=== PATIENT | female | born 1990 | race Caucasian/White ===

== ENCOUNTER 2017-01-13 01:20 | Emergency (ER) | payer OTHER ==
[2017-01-13 01:43] VITALS: BP 143/68; PULSE 122; TEMP 99.1; BMI 27.1
--- NOTE | 2017-01-13 02:25 | PDOC ---
History of Present Illness - General Chief Complaint: Respiratory Stated Complaint: DIFFICULTY BREATHING Time Seen by Provider: 01/13/17 02:05 History Source: Patient Past History - Past History Allergies/Adverse Reactions: Allergies No Known Allergies Allergy (Verified 01/13/17 01:23) Home Medications: Ambulatory Orders No Home Medications 0 dose .ROUTE UTDICT 01/13/13 Ondansetron [Zofran Odt -] 4 mg SL TID #21 od.tablet 10/31/15 Immunization Status Up to Date: Yes Tetanus Status: Unknown - Social History Smoking Status: Never smoked Number of Cigarettes Smoked Per Day: 0 Number of Cigars Per Day: 0 *Physical Exam - Vital Signs Last Vital Signs Temp Pulse Resp BP Pulse Ox 99.1 F 122 H 16 143/68 100 01/13/17 01:23 01/13/17 01:23 01/13/17 01:23 01/13/17 01:23 01/13/17 01:23
[2017-01-13] MEDS ORDERED: IBUPROFEN 600 MG TABLET (FP) PO ONE ×2 (02:34→03:01)
[2017-01-13] MEDS ORDERED: AMOX TR/POT CLAV 500MG/125MG TABLETS (FP) PO ONE (02:34)
[2017-01-13] MEDS ORDERED: PSEUDOEPHEDRINE HCL 30 MG TABLET PO SCH (02:45)
--- NOTE | 2017-01-13 03:00 | PDOC ---
History of Present Illness - General History Source: Patient Exam Limitations: No Limitations - History of Present Illness Initial Comments: 01/13/17 03:02 The patient is a 26 year old female with no significant PMH who presents to the emergency department with cough and sore throat beginning approximately two weeks ago. The patient states her cough and sore throat worsened three days ago prompting her visit to the ER. The patient complains of associated nasal congestion and green phlegm. The patient states she did have a fever but cannot recall the number at this time. The patient reports she tried vinegar gargles with no relief of symptoms. The patient denies chest pain, shortness of breath, headache and dizziness. Denies chills, nausea, vomit, diarrhea and constipation. Allergies: NKA Past surgical history: None reported Social history: No reported cigarette, drug, or alcohol use. <Vesna Liriano - Last Filed: 01/13/17 03:00> - General History Source: Patient <Noe De La Torre - Last Filed: 01/13/17 03:33> - General Chief Complaint: Respiratory Stated Complaint: DIFFICULTY BREATHING Time Seen by Provider: 01/13/17 02:05 Past History <Vesna Liriano - Last Filed: 01/13/17 03:00> - Immunization History Immunization Up to Date: Yes - Suicide/Smoking/Psychosocial Hx Smoking History: Never smoked Have you smoked in the past 12 months: No Number of Cigarettes Smoked Daily: 0 Cigars Per Day: 0 Information on smoking cessation initiated: No Hx Alcohol Use: No Drug/Substance Use Hx: No Substance Use Type: None <Noe De La Torre - Last Filed: 01/13/17 03:33> - Past Medical History Allergies/Adverse Reactions: Allergies Allergy/AdvReac Type Severity Reaction Status Date / Time No Known Allergies Allergy Verified 01/13/17 01:23 Home Medications: Ambulatory Orders No Home Medications 0 dose .ROUTE UTDICT 01/13/13 Ondansetron [Zofran Odt -] 4 mg SL TID #21 od.tablet 10/31/15 Amox-Tr/K Cl [Augmentin 500Mg Tablet] 1 tab PO BID #14 tablet 01/13/17 Diphenhydramine HCl [Benadryl Capsules -] 25 mg PO TID #30 capsule 01/13/17 Ibuprofen [Motrin] 600 mg PO TID #30 tablet 01/13/17 Loratadine [Claritin] 10 mg PO DAILY #30 tablet 01/13/17 Pseudoephedrine HCl [Sudafed] 30 mg PO Q6H #20 tablet 01/13/17 Review of Systems - Review of Systems Able to Perform ROS?: Yes Comments:: 01/13/17 03:03 CONSTITUTIONAL: Absent: no chills, no fatigue Present: fever EYES: Absent: visual changes ENT: Absent: ear pain Present: sore throat, phlegm CARDIOVASCULAR: Absent: chest pain, no palpitations RESPIRATORY: Absent: no SOB Present: cough GI: Absent: abdominal pain, no nausea, no vomiting, no constipation, no diarrhea GENITOURINARY: Absent: dysuria, no frequency, no hematuria MUSCULOSKELETAL: Absent: back pain, no arthralgia, no myalgia SKIN: Absent: rash NEURO: Absent: headache <DeandraVesna - Last Filed: 01/13/17 03:00> *Physical Exam - Vital Signs Last Vital Signs Temp Pulse Resp BP Pulse Ox 99.1 F 122 H 16 143/68 100 01/13/17 01:23 01/13/17 01:23 01/13/17 01:23 01/13/17 01:23 01/13/17 01:23 - Physical Exam Comments: 01/13/17 03:03 GENERAL: Well developed, well nourished. Awake and alert. No acute distress. HEENT: (+) Erythematous throat. (+) Sinus discomfort. (+) Moderate nasal congestion. Normocephalic, atraumatic. PERRLA, EOMI. No conjunctival pallor. Sclera are non- icteric. Moist mucous membranes. Oropharynx is clear. No exudates. NECK: Supple. Full ROM. No JVD. Carotid pulses 2+ and symmetric, without bruits. No thyromegaly. No lymphadenopathy. CARDIOVASCULAR: (+) Tachycardia. Regular rhythm. No murmurs, rubs, or gallops. Distal pulses are 2+ and symmetric. PULMONARY: No evidence of respiratory distress. Lungs clear to auscultation bilaterally. No wheezing, rales or rhonchi. ABDOMINAL: Soft. Non-tender. Non-distended. No rebound or guarding. No organomegaly. Normoactive bowel sounds. MUSCULOSKELETAL Normal range of motion at all joints. No bony deformities or tenderness. No CVA tenderness. EXTREMITIES: No cyanosis. No clubbing. No edema. No calf tenderness. SKIN: Warm and dry. Normal capillary refill. No rashes. No jaundice. NEUROLOGICAL: Alert, awake, appropriate. Cranial nerves 2-12 intact. No deficits to light touch and temperature in face, upper extremities and lower extremities. No motor deficits in the in face, upper extremities and lower extremities. Normoreflexic in the upper and lower extremities. Normal speech. Gait is normal without ataxia. PSYCHIATRIC: Cooperative. Good eye contact. Appropriate mood and affect. <Vesna Liriano - Last Filed: 01/13/17 03:00> - Vital Signs Last Vital Signs Temp Pulse Resp BP Pulse Ox 99.1 F 122 H 16 143/68 100 01/13/17 01:23 01/13/17 01:23 01/13/17 01:23 01/13/17 01:23 01/13/17 01:23 <Noe De La Torre - Last Filed: 01/13/17 03:33> Medical Decision Making - Medical Decision Making 01/13/17 03:32 Dr. De La Torre: The scribe's documentation has been prepared under my direction and personally reviewed by me in its entirery. I confirm that the note above accurately reflects all work, treatment, procedures, and medical decision making performed by me. cough has improved with treatment in the ED. Pt wo be discharged and follow up with her doctor as needed <Noe De La Torre - Last Filed: 01/13/17 03:33> *DC/Admit/Observation/Transfer - Attestations Scribe Attestion: 01/13/17 03:03 Documentation prepared by Vesna Liriano, acting as medical claims assistant for Noe De La Torre DO. <Vesna Liriano - Last Filed: 01/13/17 03:00> - Discharge Dispostion Admit: No <Noe De La Torre - Last Filed: 01/13/17 03:33> Diagnosis at time of Disposition: Cough, Post-nasal drip - Discharge Dispostion Disposition: HOME Condition at time of disposition: - Prescriptions Prescriptions: Amox-Tr/K Cl [Augmentin 500Mg Tablet] 1 tab PO BID #14 tablet Diphenhydramine HCl [Benadryl Capsules -] 25 mg PO TID #30 capsule Ibuprofen [Motrin] 600 mg PO TID #30 tablet Loratadine [Claritin] 10 mg PO DAILY #30 tablet Pseudoephedrine HCl [Sudafed] 30 mg PO Q6H #20 tablet - Referrals Referrals: Paula Adhikari MD [Staff Physician] - - Patient Instructions Printed Discharge Instructions: DI for Cough -- Adult
[2017-01-13] MEDS ORDERED: AMOX TR/POT CLAV 500MG/125MG TABLETS (FP) ONE (03:01)
[2017-01-13] MEDS ORDERED: PSEUDOEPHEDRINE HCL 60 MG TABLET ONE (03:01)
== END 2017-01-13 03:40 | disposition home or self-care (01) ==
LOC: JER 01:20
DX: R05 Cough (principal); R09.82 Postnasal drip
CPT/HCPCS: 99281-25

== ENCOUNTER 2017-03-02 10:07 | Emergency (ER) | payer SELFPAY ==
[2017-03-02 10:18] VITALS: BP 120/71; PULSE 90; TEMP 98.7; BMI 27.1
[2017-03-02 11:16] LABS: URINE APPEARANCE CLOUDY; URINE BILIRUBIN NEGATIVE (NEGATIVE); URINE BLOOD 2+ (NEGATIVE); URINE COLOR LTYELLOW; URINE GLUCOSE (UA) NEGATIVE (NEGATIVE); URINE KETONE NEGATIVE (NEGATIVE); URINE NITRITE POSITIVE (NEGATIVE); URINE UROBILINOGEN NEGATIVE mg/dL (0.2-1.0)
[2017-03-02 11:19] LABS: HCG,QUALITATIVE URINE NEGATIVE
[2017-03-02 11:21] LABS: URINE LEUK ESTERASE 3+ (NEGATIVE); URINE PROTEIN 2+ (NEGATIVE)
--- NOTE | 2017-03-02 11:35 | PDOC ---
History of Present Illness - General Chief Complaint: Urinary Problem Stated Complaint: PAIN Time Seen by Provider: 03/02/17 10:56 History Source: Patient Exam Limitations: No Limitations - History of Present Illness Travel History: No Initial Comments: 03/02/17 11:34 Onset of pain, burning, frequency to urine 3 days ago but is progressively worsened to general body aches and left flank pain. States had chills and fevers last night. Had urinary tract infections but not for the past 2-3 years. Denies vomiting, denies any other symptoms. Timing/Duration: reports: getting worse Quality: reports: moderate, cramping, dullness Abdominal Pain Onset Location: reports: suprapubic, flank Pain Radiation: reports: no radiation Activities at Onset: reports: none Past History - Travel Traveled outside of the country in the last 30 days: No Close contact w/someone who was outside of country & ill: No - Past Medical History Allergies/Adverse Reactions: Allergies Allergy/AdvReac Type Severity Reaction Status Date / Time No Known Allergies Allergy Verified 03/02/17 10:14 Home Medications: Ambulatory Orders Sulfamethoxazole/Trimethoprim [Bactrim *Ds*] 1 each PO BID #14 tablet 03/02/17 COPD: No Other medical history: DENIES. - Immunization History Immunization Up to Date: Yes - Suicide/Smoking/Psychosocial Hx Smoking History: Never smoked Have you smoked in the past 12 months: No Number of Cigarettes Smoked Daily: 0 Cigars Per Day: 0 Hx Alcohol Use: No Drug/Substance Use Hx: No Substance Use Type: None Abd/GI Specific PMHX - Complaint Specific PMHX Diverticulitis: No Review of Systems - Review of Systems Able to Perform ROS?: Yes Is the patient limited Yi proficient: Yes Constitutional: Yes: Symptoms Reported, See HPI, Chills, Fever, Loss of Appetite , Malaise HEENTM: Yes: See HPI. No: Symptoms Reported Respiratory: Yes: See HPI. No: Symptoms reported : Yes: Symptoms Reported, See HPI, Burning, Dysuria, Frequency, Flank Pain. No: Discharge Musculoskeletal: Yes: See HPI. No: Symptoms Reported Integumentary: No: Symptoms Reported All Other Systems: Reviewed and Negative *Physical Exam - Vital Signs Last Vital Signs Temp Pulse Resp BP Pulse Ox 98.7 F 90 19 120/71 98 03/02/17 10:14 03/02/17 10:14 03/02/17 10:14 03/02/17 10:14 03/02/17 10:14 - Physical Exam General Appearance: Yes: Nourished, Appropriately Dressed, Apparent Distress, Mild Distress HEENT: positive: TISHA, Normal ENT Inspection, TMs Normal, Pharynx Normal Neck: positive: Supple. negative: Tender Respiratory/Chest: positive: Lungs Clear, Normal Breath Sounds Gastrointestinal/Abdominal: positive: Normal Bowel Sounds, Tender, Soft. negative: Guarding, Rebound, Tenderness Extremity: positive: Normal Capillary Refill, Normal Inspection, Normal Range of Motion Integumentary: positive: Normal Color, Dry, Warm Neurologic: positive: marker delivery II-XII NML intact, Fully Oriented, Alert, Normal Mood/ Affect, Normal Response, Motor Strength 06/17 ED Treatment Course - ADDITIONAL ORDERS Additional order review: Laboratory Results 03/02/17 10:30 Urine Color Ltyellow Urine Appearance Cloudy Urine pH 8.0 D Ur Specific [place] 1.012 Urine Protein 2+ H Urine Glucose (UA) Negative Urine Ketones Negative Urine Blood 2+ H Urine Nitrite Positive Urine Bilirubin Negative Urine Urobilinogen Negative Ur Leukocyte Esterase 3+ H D Urine HCG, Qual Negative Progress Note - Progress Note Progress Note: Urinary tract infection, we'll treat with Bactrim as patient is uninsured and wait for sensitivities to analyze susceptibility. *DC/Admit/Observation/Transfer Diagnosis at time of Disposition: UTI (urinary tract infection) Qualifiers: Urinary tract infection type: site unspecified Hematuria presence: without hematuria Qualified Code(s): N39.0 - Urinary tract infection, site not specified - Discharge Dispostion Disposition: HOME Condition at time of disposition: Stable Admit: No - Prescriptions Prescriptions: Sulfamethoxazole/Trimethoprim [Bactrim *Ds*] 1 each PO BID #14 tablet - Referrals Referrals: [facility] [Provider Group] - Patient Instructions Printed Discharge Instructions: DI for Urinary Tract Infection (UTI) Additional Instructions: Rest, drink lots of fluids: Teas, water, soups Avoid contact with others until fevers and symptoms resolved Lots of handwashing and good hygiene Continue [id number] medications for symptomatic relief Tylenol or Motrin for fever and pain Continue all of antibiotics until completed Followup with private physician in one week for repeat urinalysis/reevaluation Return to emergency department for worsened symptoms, fevers, dehydration - Post Discharge Activity Forms/Work/School Notes: Back to Work
[2017-03-02 12:19] LABS: EPI CELLS RARE /HPF (FEW); URINE BACTERIA RARE /hpf (NONE SEEN); URINE MUCUS RARE; YEAST RARE
== END 2017-03-02 11:50 | disposition home or self-care (01) ==
LOC: JERFT 10:07
DX: N39.0 Urinary tract infection, site not specified (principal)
CPT/HCPCS: 81003; 81015; 84703; 87086; 87186; 99281-25

== ENCOUNTER 2018-08-11 13:47 | Emergency (ER) | payer SELFPAY ==
[2018-08-11 13:50] VITALS: BMI 30.2
--- NOTE | 2018-08-11 13:58 | PDOC ---
History of Present Illness - General Chief Complaint: Vaginal Bleeding Stated Complaint: PREG/BLEEDING Time Seen by Provider: 08/11/18 13:58 History Source: Patient Exam Limitations: No Limitations - History of Present Illness Initial Comments: 08/11/18 14:16 28 year old female 6weeks by date (06/26/18) A2 presented to ED for vaginal bleeding associated with suprapubic cramping since today. Pt reported light spotting x2 days, but today the bleeding increased. Pt denied fever, chills, nausea, vomiting, dysuria, vaginal discharge. Pt does not have OBGYN, no insurance, reported going to a OBGYN clinic x1 week ago for US - was told it was too early to identify the . Pt reported taking 1 Tylenol Pill this AM. Pt denied vitamins. Past History - Past Medical History Allergies/Adverse Reactions: Allergies Allergy/AdvReac Type Severity Reaction Status Date / Time No Known Allergies Allergy Verified 08/11/18 13:50 Home Medications: Ambulatory Orders Sulfamethoxazole/Trimethoprim [Bactrim *Ds*] 1 each PO BID #14 tablet 03/02/17 Cephalexin Monohydrate [Keflex -] 500 mg PO BID #13 capsule 08/11/18 COPD: No - Immunization History Immunization Up to Date: Yes - Suicide/Smoking/Psychosocial Hx Smoking History: Never smoked Have you smoked in the past 12 months: No Number of Cigarettes Smoked Daily: 0 Cigars Per Day: 0 Hx Alcohol Use: No Drug/Substance Use Hx: No Substance Use Type: None Review of Systems - Review of Systems Able to Perform ROS?: Yes Comments:: 08/11/18 14:19 General: denied fever, chills, generalized weakness. HEENT: denied sore throat, rhinorrhea, ear pain. Heart: denied chest pain, palpitations, syncope, diaphoresis. Respiratory: denied shortness of breath, cough, sputum production, hemoptysis. Abdomen: admitted to abdominal pain. denied nausea, vomiting, diarrhea, constipation, blood in stool. : admitted to vaginal bleeding, suprapubic cramping. denied dysuria, increased urinary frequency, hematuria, urinary incontinence, flank pain. Back: denied back pain. Musculoskeletal: denied joint pain, muscle pain, joint swelling. Neurological: denied headache, dizziness, numbness, tingling, weakness. Skin: denied rash, laceration, abrasion. *Physical Exam - Vital Signs Last Vital Signs Temp Pulse Resp BP Pulse Ox 98.1 F 86 18 125/85 97 08/11/18 13:48 08/11/18 13:48 08/11/18 13:48 08/11/18 13:48 08/11/18 13:48 - Physical Exam Comments: 08/11/18 14:20 Constitutional: Well-nourished, Well-developed, appearing stated age. HEENT: head is normocephalic, atraumatic. EOMI. PERRLA. Neck: supple. Full ROM. Heart: regular rhythm. no murmurs, rubs or gallops. Lungs: clear to auscultation bilaterally. no crackles, rhonchi or wheezing. no stridor. Abdomen: soft, nontender. normal bowel sounds. no rebound, guarding, masses. Pelvic: normal external genitalia. scant blood in the vaginal canal, no pooling. no CMT. no adnexal tenderness. Extremities: peripheral pulses intact. no lower extremity edema. Neurological: CN 2-12 grossly intact. moves all four extremities. Psych: awake, alert, oriented x3. follows commands. answers questions appropriately. General Appearance: Yes: Nourished ED Treatment Course - LABORATORY CBC & Chemistry Diagram: 08/11/18 14:21 08/11/18 14:21 Medical Decision Making - Medical Decision Making 08/11/18 14:21 28 year old female with above PMH presented to ED for vaginal bleeding/pelvic cramping. Pt refused pain medication. Initial Vital Signs Temp Pulse Resp BP Pulse Ox 98.1 F 86 18 125/85 97 08/11/18 13:48 08/11/18 13:48 08/11/18 13:48 08/11/18 13:48 08/11/18 13:48 Afebrile. No tachycardia. No tachypnea. No hypotension. No hypoxia on room air. Labs ordered: CBC, CMP, T/S, PT/PTT/INR Imaging ordered: TVUS Medications ordered: none Chart review: -Blood type O+ on prior T/S 08/11/18 15:27 CBC WBC 11.6 K/mm3 (4.0-10.0) H 08/11/18 14:21 RBC 4.28 M/mm3 (3.60-5.2) 08/11/18 14:21 Hgb 12.1 GM/dL (10.7-15.3) 08/11/18 14:21 Hct 36.6 % (32.4-45.2) D 08/11/18 14:21 MCV 85.5 fl (80-96) 08/11/18 14:21 MCH 28.3 pg (25.7-33.7) 08/11/18 14:21 MCHC 33.1 g/dl (32.0-36.0) 08/11/18 14:21 RDW 15.2 % (11.6-15.6) D 08/11/18 14:21 Plt Count 429 K/MM3 (134-434) D 08/11/18 14:21 MPV 7.8 fl (7.5-11.1) 08/11/18 14:21 Absolute Neuts (auto) 6.7 K/mm3 (1.5-8.0) 08/11/18 14:21 Neutrophils % 57.5 % (42.8-82.8) 08/11/18 14:21 Lymphocytes % 32.6 % (8-40) D 08/11/18 14:21 Monocytes % 8.5 % (3.8-10.2) 08/11/18 14:21 Eosinophils % 0.8 % (0-4.5) 08/11/18 14:21 Basophils % 0.6 % (0-2.0) 08/11/18 14:21 Nucleated RBC % 0 % (0-0) 08/11/18 14:21 Mild leukocytosis without left shift. No anemia. CMP Sodium 141 mmol/L (136-145) 08/11/18 14:21 Potassium 4.1 mmol/L (3.5-5.1) 08/11/18 14:21 Chloride 111 mmol/L (98-107) H 08/11/18 14:21 Carbon Dioxide 23 mmol/L (21-32) 08/11/18 14:21 Anion Gap 7 MMOL/L (8-16) L 08/11/18 14:21 BUN 9.7 mg/dL (7-18) 08/11/18 14:21 Creatinine 0.8 mg/dL (0.55-1.3) 08/11/18 14:21 Est GFR (CKD-EPI)AfAm 116.28 08/11/18 14:21 Est GFR (CKD-EPI)NonAf 100.33 08/11/18 14:21 Random Glucose 85 mg/dL (74-106) 08/11/18 14:21 Calcium 9.0 mg/dL (8.5-10.1) 08/11/18 14:21 Total Bilirubin 0.3 mg/dL (0.2-1) 08/11/18 14:21 AST 48 U/L (15-37) H 08/11/18 14:21 ALT 44 U/L (13-61) 08/11/18 14:21 Alkaline Phosphatase 85 U/L (45-117) 08/11/18 14:21 Total Protein 7.9 g/dl (6.4-8.2) 08/11/18 14:21 Albumin 3.8 g/dl (3.4-5.0) 08/11/18 14:21 Beta HCG, Quant 37.4 mIU/ml 08/11/18 14:21 No electrolyte abnormalities. No Parminder. Mild AST elevation. Low beta-quant. TVUS report: EXAM#: TYPE/EXAM: RESULT: [id number] US/TRANSVAGINAL US PREG History Bleeding and possible early Findings The uterus measures 6.6 x 3.9 x 5.0 cm. The endometrium measures 1.2 cm in AP dimension. No intrauterine gestational sac or pole is identified The right ovary measures 2.9 x 1.5 x 3.0 cm.. Including a 1.4 cm complex right ovarian cyst The left ovary measures 2.1 x 1.3 x 2.0 cm. Doppler evaluation unremarkable There are no adnexal masses. There is no free fluid in the pelvis. IMPRESSION No intrauterine gestational sac or pole identified 1.4 cm complex right ovarian cyst Recommend clinical correlation and correlation with beta-hCGs and follow-up sonography as clinically warranted Reported By: Harjeet Dejesus MD [id number] Pending T/S, UA. 08/11/18 16:38 Blood type O+ Urine Test Results Urine Color Red 08/11/18 14:24 Urine Appearance Bloody 08/11/18 14:24 Urine pH No Result Required. 08/11/18 14:24 Ur Specific [place] No Result Required. 08/11/18 14:24 Urine Protein No Result Required. 08/11/18 14:24 Urine Glucose (UA) No Result Required. 08/11/18 14:24 Urine Ketones No Result Required. 08/11/18 14:24 Urine Blood No Result Required. 08/11/18 14:24 Urine Nitrite No Result Required. 08/11/18 14:24 Urine Bilirubin No Result Required. 08/11/18 14:24 Ur Leukocyte Esterase No Result Required. 08/11/18 14:24 UA sample contaminated with blood from vaginal bleeding. Many bacteria in urine. Will treat for UTI. Medications ordered: Keflex 500 mg PO once Pt informed of results and need for follow up in 48 hours for beta recheck. Pt given OBGYN referral. Discharge medications: Keflex 500 mg PO BID x7 days *DC/Admit/Observation/Transfer Diagnosis at time of Disposition: Vaginal bleeding during , Right ovarian cyst, Threatened - Discharge Dispostion Disposition: HOME Condition at time of disposition: Stable Decision to Admit order: No - Prescriptions Prescriptions: Cephalexin Monohydrate [Keflex -] 500 mg PO BID #13 capsule - Referrals Referrals: Juarez Jarvis MD [Staff Physician] - Oracio Espinal MD [Staff Physician] - - Patient Instructions Printed Discharge Instructions: DI for Vaginal Bleeding During Additional Instructions: You were seen today for vaginal bleeding. You have a urinary tract infection. Your lab work was normal. Your ultrasound showed no and your beta level was very low (34), this indicates you likey are having a miscarriage. You need to return to the Emergency Department in 48 hours to have your beta level rechecked. It is very important you return for this to see if the is progressing or not. Follow up with an OBGYN within 3 days, your care is not complete until you follow up. You need to establish assisted care for your . I have provided you with multiple referrals. Go to the pharmacy and buy vitamins over the counter. Start taking them today. I have sent an antibiotic to your pharmacy to treat your urinary tract infection. Pick it up today and take as advised on label. You received the first dose in the Emergency Department. Take Tylenol over the counter for your pain, take as advised on label. Return sooner to the Emergency Department for soaking through >2 pads for 2+ hours, lightheadedness like you may pass out, increasing pain despite Tylenol use, chest pain, shortness of breath, fever, vomiting or any other new, worsening or concerning symptoms. - Post Discharge Activity Forms/Work/School Notes: Back to Work
[2018-08-11 14:50] LABS: BASO % 0.6 % (0-2.0); EOS % 0.8 % (0-4.5); HEMATOCRIT 36.6 % (32.4-45.2); HEMOGLOBIN 12.1 GM/dL (10.7-15.3); LYMPH % 32.6 % (8-40); MCH 28.3 pg (25.7-33.7); MCHC 33.1 g/dl (32.0-36.0); MEAN CELL VOLUME 85.5 fl (80-96); MEAN PLT VOLUME 7.8 fl (7.5-11.1); MONO % 8.5 % (3.8-10.2); NEUT % 57.5 % (42.8-82.8); RBC 4.28 M/mm3 (3.60-5.2); RDW 15.2 % (11.6-15.6); WHITE BLOOD COUNT 11.6 K/mm3 (4.0-10.0)
[2018-08-11 14:52] LABS: INR 0.97 (0.83-1.09); PROTHROMBIN TIME (PATIENT) 11.4 SEC (9.7-13.0)
[2018-08-11 14:55] LABS: ACTIVATED PTT 30.4 SECONDS (25.2-36.5)
--- NOTE | 2018-08-11 15:02 | PDOC ---
Documentation entered by Tomi Fair SCRIBE, acting as scribe for Yu Brown DO. Yu Brown DO: This documentation has been prepared by the Manjula blanc Elijah, SCRIBE, under my direction and personally reviewed by me in its entirety. I confirm that the documentation accurately reflects all work, treatment, procedures, and medical decision making performed by me. Attending Attestation - Resident Resident Name: RocioAlma - ED Attending Attestation I have performed the following: I have examined & evaluated the patient, The case was reviewed & discussed with the resident, I agree w/resident's findings & plan - HPI HPI: 08/11/18 14:29 The patient is a 28 year old female 6 weeks by date (06/26/18) A2, with no reported significant past medical history who presents to the ED with vaginal bleeding beginning x2 days ago. The patient reports minimal spotting until today where it increased prompting her to come into the ED. The patient associates some suprapubic cramping as well. The patient went for an Ultra[employer] a week ago and was told it was too early to detect the . Denies fever, chills, nausea, vomiting, dysuria, and vaginal discharge Allergies: NKA - Physicial Exam PE: 08/11/18 14:36 GENERAL: Awake, alert, and fully oriented, in no acute distress HEAD: No signs of trauma EYES: PERRLA, EOMI, sclera anicteric, conjunctiva clear ENT: Auricles normal inspection, hearing grossly normal, nares patent, oropharynx clear without exudates. Moist mucosa NECK: Normal ROM, supple, no lymphadenopathy, JVD, or masses LUNGS: Breath sounds equal, clear to auscultation bilaterally. No wheezes, and no crackles HEART: Regular rate and rhythm, normal S1 and S2, no murmurs, rubs or gallops ABDOMEN: +Suprapubic Tenderness. Soft, normoactive bowel sounds. No guarding, no rebound. No masses EXTREMITIES: Normal range of motion, no edema. No clubbing or cyanosis. No cords, erythema, or tenderness NEUROLOGICAL: Cranial nerves II through XII grossly intact. Normal speech, normal gait SKIN: Warm, Dry, normal turgor, no rashes or lesions noted. - Medical Decision Making 08/11/18 14:56 I, Dr. Yu Brown, DO, attest that this document has been prepared under my direction and personally reviewed by me in its entirety. I further attest, that it accurately reflects all work, treatment, procedures and medical decision -making performed by me. 08/11/18 14:56 a/p: 28yo female at about 6 weeks with vaginal spotting and cramping -not on vitamins -pt states lower pelvic cramping -prior miscarriage and prior in the past -will send labs, tvus -concern for ectopic vs threatened ab -scant blood without pooling in the vault -will send labs, type and screen -will monitor and reassess 08/11/18 16:30 cyst seen on ultrasound beta 37 O+ blood type ? 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
[2018-08-11 15:06] LABS: ALBUMIN 3.8 g/dl (3.4-5.0); BILIRUBIN,TOTAL 0.3 mg/dL (0.2-1); BLOOD UREA NITROGEN 9.7 mg/dL (7-18); CREATININE 0.8 mg/dL (0.55-1.3); POTASSIUM 4.1 mmol/L (3.5-5.1); TOT PROT 7.9 g/dl (6.4-8.2)
[2018-08-11 15:26] LABS: PLATELET COUNT 429 K/MM3 (134-434)
[2018-08-11 15:34] LABS: URINE APPEARANCE BLOODY; URINE COLOR RED
[2018-08-11 15:35] LABS: EPI CELLS FEW /HPF (0-5/HPF); URINE BACTERIA MANY /hpf (NEGATIVE); URINE RBC >100 /hpf (0-4); URINE WBC 0-3 /hpf (0-5)
[2018-08-11 15:36] LABS: URINE CRYSTALS FEW /hpf
[2018-08-11] MEDS ORDERED: CEPHALEXIN MONOHYDRATE 500 MG CAPSULE (UD) PO ONE (16:35)
[2018-08-11] MEDS ORDERED: NITROFURANTOIN MACROCRYSTAL 50 MG CAPSULE (FP) PO SCH (16:45)
[2018-08-11] MEDS ORDERED: CEPHALEXIN MONOHYDRATE 500 MG CAPSULE (UD) ONE (16:57)
[2018-08-11 17:01] VITALS: BP 110/78; PULSE 81; TEMP 98.5
== END 2018-08-11 17:01 | disposition home or self-care (01) ==
LOC: JER 13:47
DX: O26.891 Other specified pregnancy related conditions, first trimester (principal); O20.0 Threatened abortion; O23.31 Infections of other parts of urinary tract in pregnancy, first trimester; O34.81 Maternal care for other abnormalities of pelvic organs, first trimester; N83.291 Other ovarian cyst, right side; Z3A.01 Less than 8 weeks gestation of pregnancy
CPT/HCPCS: 36415; 76817-TC; 80053; 81003; 84702; 85025; 85610; 85730; 86850; 86900; 86901; 87086; 99283-25

== ENCOUNTER 2018-08-13 10:13 | Emergency (ER) | payer SELFPAY ==
[2018-08-13 10:20] VITALS: BP 121/71; PULSE 77; TEMP 98.3; BMI 30.2
--- NOTE | 2018-08-13 10:43 | PDOC ---
History of Present Illness - General Chief Complaint: Revisit, Lab Variance Stated Complaint: PREG/ BLEEDING Time Seen by Provider: 08/13/18 10:26 History Source: Patient (PT is here for rpt beta) Past History - Travel Traveled outside of the country in the last 30 days: No - Past Medical History Allergies/Adverse Reactions: Allergies Allergy/AdvReac Type Severity Reaction Status Date / Time No Known Allergies Allergy Verified 08/13/18 10:19 Home Medications: Ambulatory Orders NK [No Known Home Medication] 08/13/18 COPD: No - Immunization History Immunization Up to Date: Yes - Suicide/Smoking/Psychosocial Hx Smoking History: Never smoked Have you smoked in the past 12 months: No Number of Cigarettes Smoked Daily: 0 Cigars Per Day: 0 Hx Alcohol Use: No Drug/Substance Use Hx: No Substance Use Type: None Review of Systems - Review of Systems Able to Perform ROS?: Yes Is the patient limited Romanian proficient: No Constitutional: No: Chills, Fever ABD/GI: No: Abdominal Distended, Blood Streaked Bowels, Diarrhea, Nausea, Vomiting, Abdominal cramping Musculoskeletal: No: Back Pain *Physical Exam - Vital Signs Last Vital Signs Temp Pulse Resp BP Pulse Ox 98.3 F 77 16 121/71 98 08/13/18 10:17 08/13/18 10:17 08/13/18 10:17 08/13/18 10:17 08/13/18 10:17 - Physical Exam General Appearance: Yes: Nourished Respiratory/Chest: positive: Lungs Clear, Normal Breath Sounds Cardiovascular: positive: Regular Rhythm, Regular Rate, S1, S2 Gastrointestinal/Abdominal: positive: Normal Bowel Sounds 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 08/13/18 10:44 08/13/18 12:24 Rpt beta 4.5 pt advised to f/u [facility] for follow up *DC/Admit/Observation/Transfer Diagnosis at time of Disposition: Threatened - Discharge Dispostion Disposition: HOME Condition at time of disposition: Stable Decision to Admit order: No - Referrals Referrals: Shravan Daly MD [Staff Physician] - - Patient Instructions Additional Instructions: Your beta today was 4.5, it is trending down as expected please followup with [facility] clinic as previously advised Return to the ER if worsening symptoms occurs. - Post Discharge Activity
== END 2018-08-13 12:01 | disposition home or self-care (01) ==
LOC: JERFT 10:13
DX: O26.891 Other specified pregnancy related conditions, first trimester (principal); O20.0 Threatened abortion; Z3A.01 Less than 8 weeks gestation of pregnancy
CPT/HCPCS: 36415; 84702; 99281-25

== ENCOUNTER 2019-01-22 19:30 | Emergency (ER) | payer SELFPAY ==
[2019-01-22 19:51] VITALS: BP 126/77; PULSE 89; TEMP 97.4; BMI 31.1
--- NOTE | 2019-01-22 19:51 | PDOC ---
Rapid Medical Evaluation Chief Complaint: Lightheaded Time Seen by Provider: 01/22/19 19:48 Medical Evaluation: Allergies Allergy/AdvReac Type Severity Reaction Status Date / Time No Known Allergies Allergy Verified 08/13/18 10:19 01/22/19 19:48 I have performed a brief in-person evaluation of this patient. The patient presents with a chief complaint of: no Sig Pmhx present with complains of 2 days h/o "vertigo" as described by patient. pt report has been feeling positional spinning sensation with photophobia and her symptoms feels like vertigo. Denies blurry vision, change in vision Pertinent physical exam findings: A&O x 3 in NAD I have ordered the following: Uhcg The patient will proceed to the ED for further evaluation Discharge Disposition - Diagnosis Vertigo - Discharge Dispostion Condition at time of disposition: Stable - Referrals - Patient Instructions - Post Discharge Activity
--- NOTE | 2019-01-22 20:42 | PDOC ---
History of Present Illness - General Chief Complaint: Lightheaded Stated Complaint: VERTIGO Time Seen by Provider: 01/22/19 19:48 - History of Present Illness Initial Comments: 01/22/19 20:40 28-year-old female without comorbidities presents for evaluation of 3 days of intermittent dizziness without systemic symptoms she describes vertiginous symptoms. Past History - Past Medical History Allergies/Adverse Reactions: Allergies Allergy/AdvReac Type Severity Reaction Status Date / Time No Known Allergies Allergy Verified 01/22/19 19:51 Home Medications: Ambulatory Orders Meclizine HCl [Antivert -] 25 mg PO QID #120 tablet 01/22/19 COPD: No - Immunization History Immunization Up to Date: Yes - Psycho Social/Smoking Cessation Hx Smoking History: Never smoked Have you smoked in the past 12 months: No Number of Cigarettes Smoked Daily: 0 Cigars Per Day: 0 Information on smoking cessation initiated: No Hx Alcohol Use: No Drug/Substance Use Hx: No Substance Use Type: None Review of Systems - Review of Systems Neurological: Yes: Dizziness *Physical Exam - Vital Signs Last Vital Signs Temp Pulse Resp BP Pulse Ox 97.4 F L 89 17 126/77 100 01/22/19 19:47 01/22/19 19:47 01/22/19 19:47 01/22/19 19:47 01/22/19 19:47 - Physical Exam 01/22/19 20:41 GENERAL: The patient is awake, alert, and fully oriented, in no acute distress. HEAD: Normal with no signs of trauma. EYES: sclera anicteric, conjunctiva clear. ENT: Ears normal tympanic membranes normal oropharynx clear uvula midline NECK: Normal range of motion LUNGS: Breath sounds equal, clear to auscultation bilaterally. No wheezes, and no crackles. HEART: S1 and S2 without murmur, rub or gallop. ABDOMEN: Soft, nontender, normoactive bowel sounds. No guarding, no rebound. No masses. EXTREMITIES: Normal range of motion, no edema. No clubbing or cyanosis. No cords, erythema, or tenderness. NEUROLOGICAL: Cranial nerves II through XII grossly intact. Normal speech, normal gait. PSYCH: Normal mood, normal affect. SKIN: Warm, Dry, normal turgor, no rashes or lesions noted. Medical Decision Making - Medical Decision Making 12/10/19 20:41 Meclizine follow-up with neurology Discharge - Discharge Information Problems reviewed: Yes Clinical Impression/Diagnosis: Vertigo Condition: Stable Disposition: HOME - Admission No - Additional Discharge Information Prescriptions: Meclizine HCl [Antivert -] 25 mg PO QID #120 tablet - Follow up/Referral Referrals: Eran Bates MD [Staff Physician] - - Patient Discharge Instructions Patient Printed Discharge Instructions: Vertigo Additional Instructions: Please use the meclizine as directed. Return to the emergency room for worsening symptoms. Without fail please follow-up with your primary care physician in 1 to 2 days for further evaluation and treatment options. The meclizine will make you sleepy do not take this medication if you have to drive. - Post Discharge Activity
== END 2019-01-22 20:49 | disposition home or self-care (01) ==
LOC: JERFT 19:30
DX: R42 Dizziness and giddiness (principal)
CPT/HCPCS: 99281-25